=== PATIENT | female | born 1940 | race African-American/Black ===

== ENCOUNTER → 2017-01-13 | Outpatient (CLI) | payer OTHER ==
[~2017-01-13] MED LIST: ALENDRONATE SOD70 MG PO; FERRO-TIME325 MG PO; HCTZ PO; MOBIC PO; VITAMIN D 2 PO; ZESTRIL40 MG PO
--- NOTE | ~2017-01-13 | BD1 ---
[facility] RADIOLOGY TEXT RESULTS PATIENT: HUGH NEWBERRY LOCATION: [facility] : 38 UNIT #: [id number] AGE: [address]: ADRIÁN PASCAL SEX: F ORDER DR: [id number] [address] [id number] O MR#: [id number] #: [id number] NAME: HUGH NEWBERRY : 1940 SEX: F STUDY DATE/TIME: 01/13/2017 10:28 UNIT: [facility] ROOM: STUDY DESCRIPTION: Dexa Bone Dens 1+ Site Attending Physician: Adrián Pascal M.D. Referring Physician: Adrián Pascal M.D. Primary Care Physician: Amee Hutton D.O. MEDICAL IMAGING REPORT This report is preliminary unless electronic signature is present. EXAM DXA scan HISTORY 76-year-old female; postmenopausal screening for osteoporosis. TECHNIQUE Bone density was assessed utilizing a [employer] bone densitometer. FINDINGS Total bone density in the lumbar spine was calculated at 1.041 g/cm2 for a T-score of -1.2. Bone density within the proximal femurs is calculated at 0.839 g/cm2, from the left femoral neck for a T-score of -1.4. Right femoral neck bone density was calculated at 0.981 g/cm2, for a T-score of -0.4. IMPRESSION Total bone density within the left proximal femur and lumbar spine is between 1 and 2.5 standard deviations below the mean and is compatible with World Health Organization criteria for osteopenia. Dictated by... Marcial Hutton M.D. THIS IS AN ELECTRONICALLY VERIFIED REPORT Marcial Hutton M.D. at 01/16/2017 3:57 PM Rosemary TD: 01/16/2017 12:39 JOB #: [id number] [facility] RADIOLOGY TEXT RESULTS PATIENT: HUGH NEWBERRY LOCATION: [facility] : 38 UNIT #: [id number] AGE: [address]: ADRIÁN PASCAL SEX: F ORDER DR: MEDICAL IMAGING REPORT Page 1 of 1
== END | disposition home or self-care (01) ==
LOC: SRAD 09:54
DX: N95.9 Unspecified menopausal and perimenopausal disorder (principal)
CPT/HCPCS: 77080